=== PATIENT | female | born 1985 | race Two or more races ===

== ENCOUNTER 2020-12-03 19:41 | Emergency (ER) | payer OTHER ==
[~2020-12-03] VITALS: Ht 160 cm; Wt 63.6 kg
[2020-12-03 21:30] VITALS: BP 123/75
== END 2020-12-03 23:00 | disposition home or self-care (01) ==
LOC: EMS 19:41
DX: M25.422 Effusion, left elbow (principal)
CPT/HCPCS: 29105; 99283